=== PATIENT | male | born 1970 | race African-American/Black ===

== ENCOUNTER 2018-04-07 14:42 | Emergency (ER) | payer BC ==
--- NOTE | 2018-04-07 14:56 | UC ---
GI Bleed HPI - HPI Summary HPI Summary: The patient is a 48 y/o M presenting to [facility] c/o blood in stool starting 04/04. He states that there is approximately a tablespoon of red blood that comes at the end of his BM, which are loose, bales in color, and have been occurring more frequently than normal. He has began to have discomfort diffusely across his lower abd starting yesterday. He denies upper abd pain, dysuria, hematuria, and lightheadedness. He additionally reports that he was taking Ibuprofen for his arthritis from 03/31 to 04/02 but has since stopped. He hasn't taken any other medication except Amlodipine for HTN. He has had hemorrhoids in the past. Current smoker and daily alcohol drinker. - History Of Current Complaint Stated Complaint: BLOOD IN STOOL Time Seen by Provider: 04/07/18 14:47 Hx Obtained From: Patient Onset/Duration: Sudden Onset, Lasting Days - three, Still Present Timing: Constant - with each BM for last three days Severity: Bright Red Blood per Rectum Severity Initially: Moderate Severity Currently: Moderate Pain Scale Used: 0-10 Numeric Associated Pain: Diffuse - across low abd Associated Signs And Symptoms: Positive: Other - POSITIVE: diffuse low abd pain , increase in frequency; NEGATIVE: dysuria, hematuria, lightheadedness, upper abd pain - Allergies/Home medications Allergies/Adverse Reactions: Allergies Allergy/AdvReac Type Severity Reaction Status Date / Time procaine Allergy Tachycardia Verified 04/07/18 14:56 Home Medications: Home Medications Amlodipine Besylate [Norvasc 5 mg tab] 04/07/18 [History] PMH/Surg Hx/FS Hx/Imm Hx Other Endocrine History: NEGATIVE: diabetes Cardiovascular History: Hypertension Other GI/ History: Hemorrhoids - Surgical History Surgical History: None - Family History Known Family History: Positive: Hypertension Family History: mother - alive with HTN per EMR. Father in house fire. - Social History Alcohol Use: Daily Alcohol Amount: "375 mls of whiskey and a few beers" Substance Use Type: Marijuana Smoking Status (MU): Heavy Every Day Tobacco Smoker Type: Cigarettes Amount Used/How Often: 10 cigarettes/day Have You Smoked in the Last Year: Yes - Immunization History Most Recent Influenza Vaccination: fall 2011 Most Recent Tetanus Shot: unknown Most Recent Pneumonia Vaccination: never Review of Systems Constitutional: Other - NEGATIVE: lightheaded Gastrointestinal: Abdominal Pain - discomfort through lower abd, Diarrhea - with blood at end of movement, Other - POSITIVE: increased number of BM per day ; NEGATIVE: upper abd pain Genitourinary: Other - NEGATIVE: dysuria, hematuria All Other Systems Reviewed And Are Negative: Yes Physical Exam - Summary Physical Exam Summary: General: well-appearing, no pain distress Skin: warm, color reflects adequate perfusion, dry Head: normal Eyes: EOMI, NIGEL ENT: normal Neck: supple, nontender Respiratory: CTA, breath sounds present Cardiovascular: RRR Abdomen: soft, nontender Bowel: present Rectal Exam: No hemorrhoids, no active bleeding Musculoskeletal: normal, strength/ROM intact Neurological: sensory/motor intact, A&O x3 Psychological: affect/mood appropriate Triage Information Reviewed: Yes Vital Signs Reviewed: Yes Diagnostics - Radiology Abdomen/Pelvis CT Xray Interpretation: No Acute Changes - No evidence of obstructive uropathy is noted. [facility] physician has reviewed this report. Radiology Interpretation Completed By: Radiologist Bleed Course/Dx - Course Course Of Treatment: Medications reviewed. Allergies noted. BP noted and advised to follow up with PCP. ORTHOSTATIC VITAL SIGNS NORMAL. DISCUSSED EVALUATION IN THE EMERGENCY DEPARTMENT; THE PATIENT PREFERED EVALUATION IN THE CLINIC. NO PASSING OF BLOOD IN CLINIC. THE BLOOD LOSS VOLUME BY HISTORY IS APPROX 1 TABLESPOON 3 TIMES A DAY. PATIENT DOES NOT FEEL LIGHT HEADED. DISCUSSED CT RESULTS WITH THE PATIENT. CBC, CMP, INR PENDING. F/U PMD AND GASTROENTROLOGY. PATIENT AGREED TO GO TO THE EMERGENCY DEPARTMENT WITH ANY WORSENING OF HIS CONDITION. - Differential Dx/Diagnosis Provider Diagnoses: RECTAL BLEEDING. ABDOMINAL PAIN. HTN, Discharge - Sign-Out/Discharge Documenting (check all that apply): Patient Departure - Patient will be discharged home. - Discharge Plan Condition: Stable Disposition: HOME Patient Education Materials: Rectal Bleeding (ED), Acute Abdominal Pain (ED) Referrals: [facility] [Provider Group] Boo Gonzales MD [Medical Doctor] - Getachew Maxwell NP [Primary Care Provider] - Additional Instructions: FOLLOW UP WITH YOUR PRIMARY CARE DOCTOR AND GASTROENTEROLOGY. GO TO THE EMERGENCY DEPARTMENT FOR ANY WORSENING OF YOUR CONDITION; CONTINUED OR WORSE BLEEDING, PAIN, FEVER, YOU FEEL LIKE PASSING OUT OR QUESTIONS OR CONCERNS. Your blood pressure was elevated during todays visit; please follow up with your primary care provider within a week for further evaluation. - Billing Disposition and Condition Condition: STABLE Disposition: Home Attestation Statement Scribe Attestation: This is wolfibe Enedina Richard documenting for attending Dr. Solo Jean Baptiste MD. User Type: Provider with Scribe Provider Attestation: The documentation recorded by the scribe accurately reflects the service I personally performed and the decisions made by me.
[2018-04-07 15:14] VITALS: BP 147/91
--- NOTE | 2018-04-07 16:04 | RAD ---
Indication: Lower abdominal pain. CT of the abdomen and pelvis was performed without oral or IV contrast demonstration. Coronal and sagittal reconstructed images were obtained. The lung bases demonstrate no pleural fluid, nodules or masses. The heart demonstrates no pericardial effusion. Liver is normal in size. No focal lesions or intrahepatic duct dilatation is noted. The spleen is normal in size. Pancreas demonstrates no mass or pancreatic duct dilatation. No adrenal lesions are noted. The kidneys demonstrate no hydronephrosis. No retroperitoneal lymphadenopathy is noted. CT of the pelvis demonstrates no retroperitoneal or pelvic lymphadenopathy. The urinary bladder is unremarkable. The prostate and seminal vesicles are unremarkable. No hernias are noted. IMPRESSION: No evidence of obstructive uropathy is noted.
[2018-04-07 19:14] LABS: ABS Basophils 0.1 10^3/ul (0-0.2); ABS Eosinophils 0.2 10^3/ul (0-0.6); ABS Lymphocytes 3.1 10^3/ul (1.0-4.8); ABS Monocytes 0.7 10^3/ul (0-0.8); ABS Neutrophils 4.7 10^3/ul (1.5-7.7); ABS Nucleated RBC 0 10^3/ul; Eosinophil % 2.3 % (0-6); Hematocrit 38 % (42-52); Lymphocyte % 34.8 % (25-47); Mean Corpuscular HGB Conc 34 g/dl (31-36); Mean Corpuscular Hemoglobin 33 pg (27-31); Mean Corpuscular Volume 96 fL (80-94); Mean Platelet Volume 9.6 um3 (7.4-10.4); Nucleated Red Blood Cells % 0.1; Platelet Count 253 10^3/ul (150-450); Red Blood Count 3.97 10^6/ul (4.00-5.40); Red Cell Distribution Width 14 % (10.5-15); White Blood Count 8.8 10^3/ul (3.5-10.8)
[2018-04-07 19:23] LABS: EGFR Non-African American 70.4 (>60)
[2018-04-07 19:25] LABS: INR 0.9 (0.77-1.02)
--- NOTE | 2018-04-08 07:13 | UC ---
- Progress Note Progress Note: notify pt elevated LFTs that need follow up Discharge - Sign-Out/Discharge Documenting (check all that apply): Post-Discharge Follow Up - Discharge Plan Condition: Stable Disposition: HOME Patient Education Materials: Rectal Bleeding (ED), Acute Abdominal Pain (ED) Referrals: [facility] [Provider Group] Boo Gonzales MD [Medical Doctor] - Getachew Maxwell NP [Primary Care Provider] - Additional Instructions: FOLLOW UP WITH YOUR PRIMARY CARE DOCTOR AND GASTROENTEROLOGY. GO TO THE EMERGENCY DEPARTMENT FOR ANY WORSENING OF YOUR CONDITION; CONTINUED OR WORSE BLEEDING, PAIN, FEVER, YOU FEEL LIKE PASSING OUT OR QUESTIONS OR CONCERNS. Your blood pressure was elevated during todays visit; please follow up with your primary care provider within a week for further evaluation. - Billing Disposition and Condition Condition: STABLE Disposition: Home
== END 2018-04-07 16:25 | disposition home or self-care (01) ==
LOC: UCEAST 14:42
DX: K62.5 Hemorrhage of anus and rectum (principal); R10.30 Lower abdominal pain, unspecified; I10 Essential (primary) hypertension; Z88.4 Allergy status to anesthetic agent; F17.210 Nicotine dependence, cigarettes, uncomplicated
CPT/HCPCS: 36415; 74176; 80053; 85025; 85610; 99212; G0463

== ENCOUNTER 2019-07-27 13:41 | Observation (INO) | payer BC ==
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
[2019-07-27 14:14] LABS: ABS Eosinophils 0.2 10^3/ul (0-0.6); ABS Lymphocytes 3.8 10^3/ul (1.0-4.8); ABS Monocytes 0.9 10^3/ul (0-0.8); ABS Neutrophils 3.9 10^3/ul (1.5-7.7); Hematocrit 38 % (42-52); Hemoglobin 13.1 g/dL (14.0-18.0); Lymphocyte % 43.1 %; Mean Corpuscular HGB Conc 34 g/dL (31-36); Mean Corpuscular Hemoglobin 33 pg (27-31); Mean Corpuscular Volume 97 fL (80-94); Mean Platelet Volume 7.9 fL (7.4-10.4); Nucleated Red Blood Cells % 0.1; Platelet Count 231 10^3/uL (150-450); Red Blood Count 3.94 10^6 /uL (4.18-5.48); Red Cell Distribution Width 14 % (10-15); White Blood Count 8.8 10^3/uL (3.5-10.8)
--- NOTE | 2019-07-27 14:15 | ED ---
HPI Chest Pain - HPI Summary HPI Summary: This patient is a 49 year old M with a history of DM BIBA to ED via EMS with a chief complaint of chest pain that radiates down the left arm since 1250 today. 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 Patient reports numbness/tingling in the arm as well as dizziness, SOB, skin diaphoresis, and chills. Patient was given 1x NTG and ASA 324 by EMS, which relieved the symptoms slowly. The patient reports the sharp pain lasted about half an hour in total. In the ED room, patient reports mostly chest tightness, but no SOB. In the ED room after EMS treatment, the patient rates the pain 0/10 in severity. Symptoms aggravated by nothing. Symptoms alleviated by EMS treatment. Patient drinks 6 drinks of whiskey daily, but he feels that he could abstain if he wanted to. Patient reports that his cousins have had MIs in their 50s. - History of Current Complaint Chief Complaint: EDChestPainROMI Time Seen by Provider: 07/27/19 13:49 Hx Obtained From: Patient Onset/Duration: Started Hours Ago - At 1250, Resolved Time of Onset: 12:50 Timing: Constant, Lasting Minutes - 30 minutes Initial Severity: Moderate Current Severity: None Pain Intensity: 0 Pain Scale Used: 0-10 Numeric Chest Pain Location: Left Anterior Chest Pain Radiates To:: Back - Left, Shoulder - Left, Arm - Left Character: Sharp/Stabbing - Initially, Tightness - In the ED room Aggravating Factor(s): Nothing Alleviating Factor(s): EMS Tx Associated Signs and Symptoms: Positive: Chest Pain, Numbness - Left arm, Tingling - Left arm, Dizziness, Shortness of Breath, Chills, Diaphoresis. Negative: Calf Pain/Swelling - Allergy/Home Medications Allergies/Adverse Reactions: Allergies Allergy/AdvReac Type Severity Reaction Status Date / Time procaine Allergy Intermediate Tachycardia Verified 07/27/19 14:00 bee sting Allergy Severe Anaphylatic Uncoded 07/27/19 14:00 Shock Home Medications: Home Medications Folic Acid TAB* [Folvite TAB*] 1 mg PO DAILY 07/27/19 [History Confirmed ] Vitamin B Complex TAB* [B Complex-50*] 1 tab PO DAILY 07/27/19 [History Confirmed 07/27/19] PMH/Surg Hx/FS Hx/Imm Hx Endocrine/Hematology History: Reports: Hx Diabetes, Other Endocrine/ Hematological Disorders - Borderline diabetes Cardiovascular History: Reports: Hx Angina, Hx Hypertension Denies: Hx Coronary Artery Disease, Hx Hypercholesterolemia, Hx Myocardial Infarction, Hx Valvular Heart Disease Respiratory History: Denies: Hx Asthma, Hx Chronic Obstructive Pulmonary Disease (COPD) GI History: Reports: Hx Gastroesophageal Reflux Disease Musculoskeletal History: Reports: Other Musculoskeletal History - 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 Shoulder surgery - Immunization History Date of Tetanus Vaccine: 2006 Date of Influenza Vaccine: May 2012 Immunizations Up to Date: Yes Infectious Disease History: No Infectious Disease History: Denies: Hx Clostridium Difficile, Hx Hepatitis, Hx Human Immunodeficiency Virus (HIV), Hx of Known/Suspected MRSA, Hx Shingles, Hx Tuberculosis, Hx Known/ Suspected VRE, Hx Known/Suspected VRSA, History Other Infectious Disease, Traveled Outside the [place] in Last 30 Days - Family History Known Family History: Positive: Hypertension Family History: mother - alive with HTN per EMR. Father in house fire. - Social History Alcohol Use: Daily Alcohol Amount: "375 mls of whiskey and a few beers" Hx Substance Use: Yes Substance Use Type: Reports: Marijuana Hx Tobacco Use: Yes Smoking Status (MU): Heavy Every Day Tobacco Smoker Type: Cigarettes Amount Used/How Often: 10 cigarettes/day Have You Smoked in the Last Year: Yes Review of Systems Positive: Chills, Skin Diaphoresis Positive: Chest Pain Positive: Shortness Of Breath Musculoskeletal: Other - Left arm pain, numbness, tingling Negative: Edema All Other Systems Reviewed And Are Negative: Yes Physical Exam - Summary Physical Exam Summary: Constitutional: Well-developed, Well-nourished, Alert. (-) Distressed Skin: Warm, Dry HENT: Normocephalic; Atraumatic Eyes: Conjunctiva normal Neck: Musculoskeletal ROM normal neck. (-) JVD, (-) Stridor, (-) Tracheal deviation Cardio: Rhythm regular, rate normal, Heart sounds normal; Intact distal pulses; The pedal pulses are 2+ and symmetric. Radial pulses are 2+ and symmetric. Pulmonary/Chest wall: Effort normal. (-) Respiratory distress, (-) Wheezes, (-) Rales Abd: Soft, (-) tenderness, (-) Distension, (-) Guarding, (-) Rebound Musculoskeletal: (-) Edema Neuro: Alert, Oriented x3 Psych: Mood and affect Normal Triage Information Reviewed: Yes Vital Signs On Initial Exam: Initial Vitals Temp Pulse Resp BP Pulse Ox 98.7 F 75 20 132/87 97 07/27/19 13:52 07/27/19 13:52 07/27/19 13:52 07/27/19 13:52 07/27/19 13:52 Vital Signs Reviewed: Yes Procedures - Sedation Patient Received Moderate/Deep Sedation with Procedure: No Diagnostics - Vital Signs Vital Signs Temp Pulse Resp BP Pulse Ox 07/27/19 13:53 79 18 132/87 100 07/27/19 13:52 98.7 F 75 21 132/87 97 - Laboratory Result Diagrams: 07/27/19 14:08 07/27/19 14:08 Lab Statement: Any lab studies that have been ordered have been reviewed, and results considered in the medical decision making process. - EKG 1346 Cardiac Rate: NL - 75 BPM EKG Rhythm: Sinus Rhythm Summary of EKG Findings: NSR at 75 BPM, septal and lateral ST segment aberrations, concerning for ischemia, however there are no reciprocal changes. Prior EKG shows similar findings, except the ST abnormalities are more pronounced in V4 and V5 in the EKG taken today. Chest Pain Course/Dx - Course Course Of Treatment: This patient is a 49 year old M with a history of DM BIBA to ED via EMS with a chief complaint of chest pain that radiates down the left arm since 1250 today. EKG at 1346 revealed NSR at 75 BPM, septal and lateral ST segment aberrations, concerning for ischemia, however there are no reciprocal changes. Prior EKG shows similar findings, except the ST abnormalities are more pronounced in V4 and V5 in the EKG taken today. Blood work revealed RBC 3.94, Hgb 13.1, Hct 38, MCV 97, MCH 33, monocytes 0.9, glucose 101, ALT 59. First troponin 0.00. Discussed patient case with Dr. Conteh, hospitalist, who accepted the patient for admission to [facility]. Patient will be admitted to [facility] with dx of chest pain. Patient understands and agrees with this plan. - Diagnoses Provider Diagnoses: Chest pain - Provider Notifications Discussed Care Of Patient With: Sheri M Wero Time Discussed With Above Provider: 16:19 Instructed by Provider To: Admit As Inpatient - Discussed patient case with Dr. Conteh, hospitalist, who accepted the patient for admission to [facility]. Discharge ED - Sign-Out/Discharge Documenting (check all that apply): Patient Departure - Admit - Discharge Plan Condition: Fair Disposition: ADMITTED TO [facility] - Billing Disposition and Condition Condition: FAIR Disposition: Admitted to [facility] - Attestation Statements Document Initiated by Scribe: Yes Documenting Scribe: Jamil Moreira Provider For Whom Marinae is Documenting (Include Credential): Lowell Ramírez MD Scribe Attestation: I, Jamil Moreira, scribed for Lowell Ramírez MD on 07/27/19 at 1907. Scribe Documentation Reviewed: Yes Provider Attestation: The documentation as recorded by the scribe, Jamil Moreira accurately reflects the service I personally performed and the decisions made by me, Lowell Ramírze MD Status of Scribe Document: Viewed
[2019-07-27 14:21] LABS: INR 0.94 (0.82-1.09)
[2019-07-27 14:36] LABS: Albumin 4.3 g/dL (3.2-5.2); Albumin/Globulin Ratio 1.5 (1-3); BUN/Creatinine Ratio 18.9 (8-20); Calcium 9.7 mg/dL (8.6-10.3); EGFR African American 108.1 (>60); EGFR Non-African American 89.3 (>60); Globulin 2.8 g/dL (2-4); Potassium 3.9 mmol/L (3.5-5.0); Total Bilirubin 0.4 mg/dL (0.2-1.0); Total Protein 7.1 g/dL (6.4-8.9)
[2019-07-27] MEDS ORDERED: Acetaminophen TAB* 325 MG PO PRN (17:36)
[2019-07-27 18:32] LABS: Magnesium 1.8 mg/dL (1.9-2.7)
[2019-07-27] MEDS ORDERED: Enoxaparin(*) 40 MG/0.4 ML SYR SUBCUT SCH (21:00)
--- NOTE | 2019-07-27 21:04 | HP ---
CC: Getachew Maxwell NP * HISTORY AND PHYSICAL: DATE OF ADMISSION: 07/27/19 PROVIDER: Lesli Cuadra NP PRIMARY CARE PROVIDER: Getachew Maxwell NP ATTENDING PHYSICIAN WHILE IN THE HOSPITAL: Dr. Irineo Nix * (dictated by Lesli Cuadra NP). CHIEF COMPLAINT: Chest pain. HISTORY OF PRESENT ILLNESS: Mr. Sifuentes is a 49-year-old male with a past medical history significant for hypertension, GERD, type 2 diabetes, hyperlipidemia, current half a pack a day smoker, who presented to the emergency room with complaints of chest pain. The patient reports that he was driving home for lunch at approximately 12:50 today. While driving home, he developed pain on the left side of his chest, it radiated down his left arm. He reports this lasted for approximately 20 minutes. He reports associated diaphoresis, dizziness, feeling cold and clammy, nausea, and shortness of breath associated with the chest pain. The patient reports that his called 911 and upon EMS arrival the patient was given nitro sublingually. He does report that his chest pain completely resolved after receiving nitro sublingual. He also received aspirin 324 mg. The patient currently does not complain of chest pain. 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 He was moving heavy furniture. He reports that the pain is reproducible with palpation to his left upper chest and shoulder area. He described the pain as a sharp pinching pain that radiated down his left arm. The patient also reports that he has episodes of feeling like he feels dizzy while driving. He reports these episodes only occur with driving. While in the emergency room, the patient had routine lab work. He had an EKG. His EKG is essentially unchanged when compared to EKG from 2016, it shows sinus rhythm at a rate of 75. He does have some peaked T waves in V2 and 3. His initial troponin was 0.00. Given the patient's history of hypertension, hyperlipidemia, and diabetes with chest pain relieved with nitro, Hospital Medicine was asked to see and evaluate him for admission. The patient also had a negative nuclear stress test in 2013. PAST MEDICAL HISTORY: Significant for: 1. Hypertension. 2. GERD. 3. Type 2 diabetes. 4. Hyperlipidemia. HOME MEDICATIONS: Include: 1. Omeprazole 20 mg p.o. daily. 2. Metoprolol 50 mg p.o. b.i.d. 3. Metformin 500 mg p.o. daily. 4. Atorvastatin 40 mg p.o. daily. 5. Amlodipine 10 mg p.o. daily. 6. Vitamin B complex p.o. daily 1 tablet. 7. Folic acid 1 mg p.o. daily. ALLERGIES: To PROCAINE and BEE STINGS. FAMILY HISTORY: Father in a house fire at a young age. Mother with a history of hypertension. No other medical issues. Aunt with an ME in her 60s. Grandmother with an ME in her 60s. No reported history of diabetes or cancer within the family. SOCIAL HISTORY: The patient smokes a half a pack a day for approximately 30- plus years. He does report 6 shots of deepika nightly. He does report occasional marijuana use. He currently works as a highway maintenance crew worker. He is single and lives with his girlfriend. Surrogate decision maker in the event he is unable to make his own decisions is his girlfriend, Rosio. He is a full code. REVIEW OF SYSTEMS: He denies any fevers or unintended weight loss. He does report left-sided chest pain that was sharp pinching pain radiating down his left arm, associated with diaphoresis, dizziness, cold, sweats, nausea, and shortness of breath, which resolved with the resolution of his chest pain. He denies any vomiting, diarrhea, or abdominal pain. No gross hematuria, dysuria, focal weakness, sensory loss, visual complaints, dysphagia, arthralgias, myalgias, rashes, lesions, or open sores. Denies any psychosis or anxiety. PHYSICAL EXAMINATION GENERAL: At this time, Mr. Sifuentes is a 49-year-old male, he is alert and oriented , resting on a stretcher in the emergency room. He is in no acute distress. VITAL SIGNS: Blood pressure 139/97, heart rate 76, respirations 15, O2 saturation 99% on room air, temperature was 98.7. HEENT: Head is atraumatic, normocephalic. Eyes: EOMs are intact. Sclerae are anicteric and not pale. Oral mucosa appeared to be moist. NECK: Supple. LUNGS: Clear to auscultation bilaterally. No wheezes, rales, or rhonchi. CARDIAC: S1, S2. Regular rate and rhythm. No murmurs, rubs, or gallops. ABDOMEN: Soft and nontender. Bowel sounds are present x4. EXTREMITIES: He is able to move all 4 extremities. There is no clubbing or cyanosis. LABORATORY DATA AND DIAGNOSTIC STUDIES: WBCs are 8.8, RBCs 3.94, hemoglobin 13.1, hematocrit was 38, platelet count was 231. INR was 0.94. Sodium 138, potassium 3.9, chloride 106, carbon dioxide was 25, anion gap 7, BUN was 27, creatinine 0.90. ASTs were 39, ALTs were 59, alkaline phosphatase was 60. Troponin was 0.00 x2. The patient had a sinus rhythm at a rate of 75. He does have peaked T waves in V2, V3, and V4, which are consistent with prior EKG from dated 2016. There are no significant EKG changes. He does have T-wave inversions in lead 3. Chest x-ray is currently pending. ASSESSMENT AND PLAN: Mr. Sifuentes is a 49-year-old male with a past medical history significant for hypertension, hyperlipidemia, type 2 diabetes, and acid reflux, who presented to the emergency room with complaints of left-sided chest pain radiating down his left arm, relieved with nitro. Our plan is he will be admitted under observation for: 1. Chest pain. We will rule out acute coronary syndrome. We will continue to trend his troponin. His 2 initial troponins were 0.00. We will repeat an EKG in the morning. He will have a nuclear exercise stress test. He will be placed on equipment monitor phototypesetting and monitored overnight. He did receive aspirin 324 mg p.o. He also received nitro sublingual x1. His HEART is a 4. Scores of 4 to 6 are 12 to 16.6 risk of adverse cardiac events. In the HEART score study, these patients are recommended admission to the hospital for rule out acute coronary syndrome. The patient will continue on aspirin, statin. We will hold his metoprolol due to his exercise stress test in the a.m. 2. Gastroesophageal reflux disease. He should continue on omeprazole as previously prescribed. 3. Diabetes. We will place him on fingersticks a.c. We will monitor for the need for lispro sliding scale. 4. Hypertension. I will continue him on amlodipine. We will hold his metoprolol as the patient is to have a exercise nuclear stress test in the a.m. 5. FEN. He can have a regular diet. 6. Code status. He is a full code. 7. DVT prophylaxis. I will place him on Lovenox subcu. TIME SPENT: Time spent on this admission was 60 minutes, greater than half that time was spent at the bedside reviewing events leading thus far to his hospitalization, performing physical exam, and reviewing my plan of care. I have discussed this with my attending, Dr. Irineo Nix; he is in agreement with my plan. LESLI CUADRA, MANUFACTURING PLANT TECHNICIAN [id number]/CPS #: [id number] PHILL
[2019-07-28 06:33] LABS: HDL Cholesterol 71.9 mg/dL
[2019-07-28] MEDS ORDERED: Folic Acid TAB* 1 MG PO SCH (09:00)
[2019-07-28] MEDS ORDERED: amLODIPine TAB* 5 MG PO SCH (09:00)
[2019-07-28] MEDS ORDERED: Aspirin 81 mg CHEW TAB* 81 MG TAB.CHEW PO SCH (09:00)
[2019-07-28] MEDS ORDERED: Pantoprazole TAB * 40 MG TAB PO SCH (09:00)
[2019-07-28] MEDS ORDERED: Atorvastatin* 40 MG TAB PO SCH (09:00)
[2019-07-28] MEDS ORDERED: Vitamin B Complex TAB PO SCH (09:00)
[2019-07-28 15:22] VITALS: BP 131/96
--- NOTE | 2019-07-28 15:34 | ECHO ---
*[facility]* [place] [address] Fax #: [phone] Transthoracic Echocardiogram Patient: Kit Sifuentes : 1970 Study Date: 07/28/2019 Age: 49 Gender: M HR: 70 bpm Height: 62 in /157.5 cm BSA: 1.67 m^2 Weight: 145.7 lb /66.2 kg BMI: 26.7 kg/m^2 *Plant Pathology Teacher: * Rianna Segal RDCS RN *Referring Physician: * Lesli Cuadra *Reading Physician: * Zen Hernandez MD Indications: Chest Pain, unspecified. History: GERD. Risk factors: Current tobacco use. Hypertension. Diabetes mellitus. Dyslipidemia. Conclusions Summary: - Left ventricle: The cavity size is normal. Wall thickness is mildly increased. Systolic function is normal. The estimated ejection fraction is 50-55%. Wall motion is normal; there are no regional wall motion abnormalities. - Right ventricle: The cavity size is normal. Systolic function is normal. - Left atrium: The atrium is normal in size. - Pulmonary arteries: Systolic pressure cannot be accurately estimated. - No significant valvular abnormalities noted. Recommendations: None prior for comparison at time of interpretation. Study data: Transthoracic echocardiogram. Procedure: Transthoracic echocardiography was performed. Image quality was fair. The study was technically limited due to smoking history. Complete 2D, spectral Doppler, and color flow Doppler. Location: Bedside. Patient status: Observation. Patient room number: 451. Rhythm: Normal sinus rhythm. Findings Left ventricle: The cavity size is normal. Wall thickness is mildly increased. Systolic function is normal. The estimated ejection fraction is 50-55%. Wall motion is normal; there are no regional wall motion abnormalities. There is no consistent Doppler evidence of clinically significant diastolic dysfunction. Right ventricle: The cavity size is normal. Systolic function is normal. Left atrium: The atrium is normal in size. Right atrium: The atrium is normal in size. Mitral valve: The leaflets are mildly thickened. There is no evidence of stenosis. There is trace regurgitation. Aortic valve: The valve is trileaflet. The leaflets are mildly thickened. There is no evidence of stenosis. There is trace regurgitation. Tricuspid valve: The valve is structurally normal. There is no evidence of stenosis. There is trace regurgitation. Pulmonic valve: The valve is structurally normal. There is no evidence of stenosis. There is trace regurgitation. Aorta: Ascending aorta: The ascending aorta is not dilated. Aortic arch: The aortic arch is not well visualized. The aortic root appears normal. Pericardium: There is no significant pericardial effusion. Pulmonary arteries: The main pulmonary artery is normal-sized. Systolic pressure cannot be accurately estimated. Systemic veins: Inferior vena cava: The vessel is normal in size. There is (>= 50%) respiratory change in the IVC dimension. Measurements Left ventricle Value Ref Right atrium Value Ref NICOLA, LAX 4.3 cm 4.2 - 5.8 ML dim, ES, A4C 3.8 cm 2.6 - 4.4 ESD, LAX 3.2 cm 2.5 - 4.0 SI dim, ES, A4C 5.1 cm 3.4 - 5.3 FS, LAX 25 % 25 - 43 Estimated RAP 3 mm Hg --------- PW, ED (H) 1.3 cm 0.6 - 1.0 IVS/PW, ED 1.04 Aortic valve Value Ref E', lat michelle, TDI (L) 8.6 cm/sec >=10.0 Michelle diam, ED 2.2 cm --- ------ E/e', lat michelle, 7 Peak v, S 1.33 m/sec ------ --- TDI VTI, S 26.4 cm --------- E', med michelle, TDI (L) 6.9 cm/sec >=7.0 Mean grad, S 4.0 mm Hg --- ------ E/e', med michelle, 9 Peak grad, S 7.0 mm Hg ------ --- TDI LVOT/AV, VTI ratio 0.77 --------- E', avg, TDI 7.8 cm/sec E/e', avg, TDI 8 <=14 Mitral valve Value Ref Peak E 0.64 m/sec --------- LVOT Value Ref Peak A 0.84 m/sec --------- Peak carla, S 1.02 m/sec Decel time 236 ms --------- VTI, S 20.3 cm Peak E/A ratio 0.8 --------- Mean grad, S 2 mm Hg Pulmonic valve Value Ref Ventricular septum Value Ref Peak v, S 0.81 m/sec --------- IVS, ED (H) 1.4 cm 0.6 - 1.0 Peak grad, S 3.0 mm Hg --------- Right ventricle Value Ref Aortic root Value Ref NICOLA, LAX 2.9 cm Root diam 3.0 cm <3.9 NICOLA minor ax, 2.9 cm 1.9 - 3.5 A4C mid Ascending aorta Value Ref AAo AP diam, S 3.3 cm --------- Left atrium Value Ref AP dim, ES (L) 2.80 cm 3.00 - Inferior vena cava Value Ref 4.00 Diam 1.0 cm --------- ML dim, A4C 3.8 cm SI dim, A4C 4.6 cm Vol/bsa, ES, 1-p 21 ml/m^2 12 - 37 A4C Vol/bsa, ES, A/L 24 ml/m^2 16 - 34 Legend: (L) and (H) rosalba values outside specified reference range. Prepared and electronically signed by Zen Hernandez MD 07/28/2019 15:33
[2019-07-28] MEDS ORDERED: Magnesium Oxide TAB* 400 MG PO ONE (15:44)
--- NOTE | 2019-07-28 22:09 | DS ---
DISCHARGE SUMMARY: DATE OF ADMISSION: 07/27/19 DATE OF DISCHARGE: 07/28/19 PROVIDER: Lesli Cuadra NP PRIMARY CARE PROVIDER: Getachew Maxwell NP ATTENDING PHYSICIAN WHILE IN THE HOSPITAL: Dr. Samuel Marks * (dictated by Lesli Cuadra NP). PRIMARY DIAGNOSIS: Chest pain, musculoskeletal. SECONDARY DIAGNOSES: 1. Hypertension. 2. Diabetes. 3. Hyperlipidemia. STUDIES COMPLETED WHILE IN THE HOSPITAL: The patient had an EKG which showed sinus rhythm at a rate of 75 with peaked Ts in V2, V3 and V4 consistent with prior EKGs and T-wave inversions in lead III. He had a exercise 12-lead nuclear stress test, showed no evidence of ischemia or infarct. No fixed or reversible regions of hyperperfusion were evident on attenuation corrected imaging. Mild left ventricular dysfunction, estimated left ventricular function at 48%, hypokinesis is most prominent at the inferior wall and septum. The exercise portion of the stress test was low risk with no evidence of ischemia on EKG tracing. Again, there was no fixed or reversible regions of hyperperfusion evident on attenuation corrected imaging. Radio-pharmacological stress and rest imaging were within normal limits. He had a transthoracic echocardiogram report, left ventricle, the cavity size is normal. Wall thickness was mildly increased. Systolic function was normal. Estimated ejection fraction was 50% to 55%. Wall motion is normal. There is no regional wall motion abnormalities. The right ventricle cavity size is normal. Systolic function was normal. Left atrium: The left atrium is normal size. Pulmonary artery systolic blood pressure cannot accurately be estimated. No significant valvular abnormalities were noted. There was no clinically significant diastolic dysfunction. He had a chest x-ray that showed no acute cardiopulmonary disease. DISCHARGE MEDICATIONS: No new home medications. Continued home medications: 1. Omeprazole 20 mg p.o. daily. 2. Metoprolol 50 mg p.o. b.i.d. 3. Metformin 500 mg p.o. daily. 4. Amlodipine 10 mg p.o. daily. 6. Vitamin B complex 1 tablet p.o. daily. 7. Folic acid 1 tablet p.o. daily. 8. Atorvastatin 40 mg p.o. daily. 9. EPI 0.3 mg IM as needed for allergic reaction. HISTORY OF PRESENT ILLNESS AND HOSPITAL COURSE: Mr. Sifuentes is a 49-year-old male with a past medical history significant for tobacco abuse, hypertension, hyperlipidemia, diabetes who presented to the emergency room with complaints of left-sided chest pain radiating to his left arm with associated nausea, diaphoresis, cold sweats. He describes the pain as a sharp pinching pain in the left side of his chest. The patient also reports that he 1 day prior shoveled his driveway with heavy snow and also with snow blowing. 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 The patient denied any chest pain during shoveling snow or moving furniture. The patient was brought to the emergency room by EMS. He was given 1 nitro prior to arrival to the emergency room and 324 mg of aspirin. The patient did report that his chest pain resolved after 1 nitro sublingual. Due to those findings, he was admitted to the hospital to rule out acute coronary syndrome with a nuclear stress test. While in the hospital, the patient was monitored on telemetry. He had a nuclear stress test that showed no evidence for ischemia or infarct. No fixed or reversible regions of hyperperfusion were evident. It did show mildly reduced EF of 48%. I did get a transthoracic echogram that showed a normal wall motion, no hypokinesis and an EF of 50% to 55%. No valvular abnormalities. REVIEW OF SYSTEMS: The patient currently denies any chest pain or shortness of breath. Denies any fever or chills. Denies any nausea, vomiting or diarrhea. Denies any abdominal pain. Denies any urinary frequency or urgency or pain with urination. PHYSICAL EXAMINATION: General: At this time, Mr. Sifuentes is alert and oriented, standing in his room. He is in no acute distress. Vital Signs: Blood pressure 131/96, heart rate 78, respirations 18, O2 saturation 98%, temperature was 97.8. HEENT: Head is atraumatic, normocephalic. Eyes: EOMs are intact. Sclerae anicteric and not pale. Oral mucosa appeared to be moist. Neck is supple. Lungs are clear to auscultation bilaterally. No wheezes, rales or rhonchi. Cardiac: S1, S2. Regular rate and rhythm. No murmurs, rubs or gallops. Abdomen is soft and nontender. Bowel sounds are present x4. Extremities: He is able to move all 4 extremities. There is no clubbing or cyanosis. Neurologic: He is awake, alert, oriented x3. Speech is clear. Thought process is intact. There are no gross focal deficits. Skin is intact. At this time, Mr. Sifuentes is stable for discharge home. DISCHARGE PLAN: Mr. Sifuentes will be discharged home. 1. Chest pain. I suspect his chest pain is related to musculoskeletal pain from heavy lifting and recent snow shoveling and snow blowing. He does have reproducible left chest pain with palpation near his left shoulder. He had an exercise nuclear stress test today which showed evidence of ischemia or acute infarct. He did have a transthoracic echocardiogram that showed normal wall motion and an EF of 50% to 55% which was within normal limits and no valvular abnormalities. Given these findings, the patient is stable for discharge home. He should continue his beta annette and statin as previously prescribed. 2. Hypertension. He should continue his medications, metoprolol and amlodipine as previously prescribed. 3. Hyperlipidemia. He should continue Lipitor at 40 mg p.o. daily. 4. Type 2 diabetes. He should continue on Glucophage 500 mg p.o. daily as previously prescribed. 5. Tobacco abuse. I have discussed with the patient smoking cessation as this can contribute to his hypertension and increase risk of heart disease. The patient and his verbalized understanding. 6. Alcohol use. I have also recommended the patient discontinue the use of daily alcohol as again this can contribute to chronic medical conditions. The patient and his also verbalized understanding. The patient should follow up with his primary care provider in 4 to 7 days. 7. He should return to the emergency room for any chest pain, shortness of breath, dizziness, weakness, slurred speech or any other concerning symptoms. The patient and his both verbalized understanding. 8. Blurred vision with driving. The patient does report blurred vision with driving. I have recommended that he follow up with an negative retoucher and his primary care provider in regard to his blurred vision with driving. Condition on Discharge: Stable Disposition on Discharge: Home I have discussed this with my attending Dr. Samuel Marks, he is in agreement with my plan. LESLI CUADRA, DEO [id number]/[facility] #: [id number] [facility] HOSPITALSherman
== END 2019-07-28 16:31 | disposition home or self-care (01) ==
LOC: ED 13:41 → MEDTELE 17:36
PROVIDERS: ADMIT Internal Medicine; ATTEND Internal Medicine
DX: R07.89 Other chest pain (principal); I10 Essential (primary) hypertension; E11.9 Type 2 diabetes mellitus without complications; K21.9 Gastro-esophageal reflux disease without esophagitis; E78.5 Hyperlipidemia, unspecified; Z79.899 Other long term (current) drug therapy; F17.210 Nicotine dependence, cigarettes, uncomplicated; R94.31 Abnormal electrocardiogram [ECG] [EKG]
CPT/HCPCS: 36415; 71046; 78452; 80053; 80061; 83036; 83735; 84484; 85025; 85610; 93005; 93017; 93306; 99284; A9270-GY; A9502; G0378